=== PATIENT | female | born 1960 | race African-American/Black ===

== ENCOUNTER 2017-12-29 13:25 | Emergency (ER) | payer MEDICARE, MEDICAID ==
[~2017-12-29] VITALS: Ht 165.1 cm; Wt 68.2 kg
[2017-12-29] MEDS: IBUPROFEN 600 MG TABLET PO ONE (15:27)
[2017-12-29 16:27] VITALS: BP 148/95
== END 2017-12-29 16:41 | disposition home or self-care (01) ==
LOC: EMS 13:27
DX: S82.61XA Displaced fracture of lateral malleolus of right fibula, initial encounter for closed fracture (principal); F17.210 Nicotine dependence, cigarettes, uncomplicated; W22.8XXA Striking against or struck by other objects, initial encounter; Y93.01 Activity, walking, marching and hiking; Y92.89 Other specified places as the place of occurrence of the external cause; Y99.8 Other external cause status
CPT/HCPCS: 29515; 99284; 99406

== ENCOUNTER 2019-11-20 09:28 | Emergency (ER) | payer MEDICARE, MEDICAID ==
[~2019-11-20] VITALS: Ht 162.6 cm; Wt 68.2 kg
[2019-11-20] MEDS ORDERED: KETOROLAC TROMETHAMINE 60 MG/2 ML VIAL IM ONE (12:15)
[2019-11-20] MEDS ORDERED: PENICILLIN V POTASSIUM 500 MG TABLET PO ONE (12:15)
[2019-11-20 12:29] VITALS: BP 130/74
== END 2019-11-20 12:32 | disposition home or self-care (01) ==
LOC: EMS 09:30
DX: K08.89 Other specified disorders of teeth and supporting structures (principal); J45.909 Unspecified asthma, uncomplicated; F20.9 Schizophrenia, unspecified; F17.210 Nicotine dependence, cigarettes, uncomplicated
CPT/HCPCS: 96372; 99283; J1885

== ENCOUNTER → 2019-11-24 | Outpatient (CLI) | payer MEDICARE, MEDICAID | END | disposition home or self-care (01) | LOC: RADMN 10:23 | PROVIDERS: ATTEND Physician Assistant | DX: M47.26 Other spondylosis with radiculopathy, lumbar region (principal); M51.26 Other intervertebral disc displacement, lumbar region; M51.36 Other intervertebral disc degeneration, lumbar region; M48.061 Spinal stenosis, lumbar region without neurogenic claudication; M51.16 Intervertebral disc disorders with radiculopathy, lumbar region | CPT/HCPCS: 72148 ==

== ENCOUNTER 2020-01-07 14:16 | Emergency (ER) | payer MEDICARE, MEDICAID ==
[~2020-01-07] VITALS: Ht 162.6 cm; Wt 70.0 kg
[2020-01-07] MEDS ORDERED: IBUPROFEN 400 MG TABLET PO ONE (15:45)
[2020-01-07 17:55] VITALS: BP 143/79
== END 2020-01-07 18:46 | disposition home or self-care (01) ==
LOC: EMS 14:21
DX: M79.674 Pain in right toe(s) (principal); J45.909 Unspecified asthma, uncomplicated; F20.9 Schizophrenia, unspecified; F17.210 Nicotine dependence, cigarettes, uncomplicated
CPT/HCPCS: 99406

== ENCOUNTER 2020-03-27 16:49 | Emergency (ER) | payer MEDICARE, MEDICAID ==
[~2020-03-27] VITALS: Ht 162.6 cm; Wt 68.2 kg
[2020-03-27] MEDS ORDERED: KETOROLAC TROMETHAMINE 30 MG/ML VIAL IVP ONE (17:15)
[2020-03-27] MEDS ORDERED: LIDOCAINE 5% TRANSDERMAL PATCH TD ONE (17:15)
[2020-03-27 18:14] VITALS: BP 157/58
== END 2020-03-27 18:22 | disposition home or self-care (01) ==
LOC: EMS 16:49
DX: G89.29 Other chronic pain (principal); M54.5 Low back pain; J45.909 Unspecified asthma, uncomplicated; F20.9 Schizophrenia, unspecified; F17.210 Nicotine dependence, cigarettes, uncomplicated
CPT/HCPCS: 96374; 99283; J1885

== ENCOUNTER 2020-09-16 13:50 | Emergency (ER) | payer MEDICARE, MEDICAID ==
[~2020-09-16] VITALS: Ht 172.7 cm; Wt 63.6 kg
[2020-09-16 14:00] VITALS: BP 145/92
[2020-09-16] MEDS ORDERED: IBUPROFEN 600 MG TABLET PO ONE (19:00)
== END 2020-09-16 18:58 | disposition home or self-care (01) ==
LOC: EMS 13:53
DX: S46.911A Strain of unspecified muscle, fascia and tendon at shoulder and upper arm level, right arm, initial encounter (principal); J45.909 Unspecified asthma, uncomplicated; I10 Essential (primary) hypertension; F20.9 Schizophrenia, unspecified; F17.210 Nicotine dependence, cigarettes, uncomplicated; X58.XXXA Exposure to other specified factors, initial encounter; Y93.89 Activity, other specified; Y92.89 Other specified places as the place of occurrence of the external cause; Y99.8 Other external cause status
CPT/HCPCS: Z7502; Z7610

== ENCOUNTER 2020-10-17 00:33 | Emergency (ER) | payer MEDICARE, MEDICAID ==
[~2020-10-17] VITALS: Ht 165.1 cm; Wt 70.5 kg
[2020-10-17 00:35] VITALS: BP 149/100
== END 2020-10-17 02:51 | disposition left against medical advice (07) ==
LOC: EMS 00:35
DX: M25.511 Pain in right shoulder (principal); Z53.21 Procedure and treatment not carried out due to patient leaving prior to being seen by health care provider

== ENCOUNTER 2021-04-21 00:02 | Emergency (ER) | payer MEDICARE, MEDICAID ==
[~2021-04-21] VITALS: Ht 162.6 cm; Wt 63.6 kg
[2021-04-21] MEDS ORDERED: IBUPROFEN 800 MG TABLET PO ONE (02:45)
[2021-04-21 03:18] VITALS: BP 116/69
== END 2021-04-21 03:57 | disposition home or self-care (01) ==
LOC: EMS 00:09
DX: M76.811 Anterior tibial syndrome, right leg (principal); J45.909 Unspecified asthma, uncomplicated; I10 Essential (primary) hypertension; F20.9 Schizophrenia, unspecified; F17.210 Nicotine dependence, cigarettes, uncomplicated
CPT/HCPCS: 99282; Z7502; Z7610

== ENCOUNTER 2021-05-05 06:30 | Emergency (ER) | payer MEDICARE, MEDICAID ==
[~2021-05-05] VITALS: Ht 162.6 cm; Wt 54.5 kg
[2021-05-05 06:51] VITALS: BP 170/92
[2021-05-05] MEDS ORDERED: ACETAMINOPHEN 325 MG TABLET PO ONE (07:00)
[2021-05-05 07:15] LABS: BASOPHILS % (AUTO) 0.4 % (0.0-2.0); EOSINOPHILS % (AUTO) 0.8 % (1.0-6.0); HEMATOCRIT 34.5 % (36-46); HEMOGLOBIN 11.6 g/dL (12.0-16.0); LYMPHOCYTES # (AUTO) 1.3 K/uL (1.0-4.8); LYMPHOCYTES % (AUTO) 26.2 % (22.0-44.0); MEAN CORPUSCULAR HEMOGLOBIN 29.4 pg (26.0-34.0); MEAN CORPUSCULAR HGB CONC 33.6 G/dL (31.0-37.0); MEAN CORPUSCULAR VOLUME 88 fL (80-100); MONOCYTES # (AUTO) 0.3 K/uL (0.1-1.0); MONOCYTES % (AUTO) 5.8 % (2.0-9.0); NEUTROPHILS # (AUTO) 3.2 K/uL (1.8-7.7); NEUTROPHILS % (AUTO) 66.8 % (40.0-70.0); PLATELET COUNT (AUTO) 215 K/uL (150-450); RED BLOOD CELL COUNT(AUTO) 3.95 MIL/uL (4.00-5.20); RED CELL DISTRIBUTION WIDTH 14.8 % (11.5-14.5)
[2021-05-05 07:25] LABS: PROTHROMBIN TIME 10.6 SEC (9.4-11.6)
[2021-05-05 07:26] LABS: ANION GAP 7 mmol/L (8-16); CALCIUM, TOTAL 8.9 mg/dL (8.8-10.5); CARBON DIOXIDE 26 mmol/L (22-29); CHLORIDE 104 mmol/L (98-107); CREATININE 0.58 mg/dL (0.60-1.30); GLOMERULAR FILTR. RATE CALC > 60 mL/min (>60); GLUCOSE,RANDOM 77 mg/dL (70-110); SODIUM SERUM 137 mmol/L (136-145); UREA NITROGEN, BLOOD 13 mg/dL (7-18)
[2021-05-05 07:40] LABS: ALANINE AMINOTRANSFERASE 23 U/L (12-78); ALBUMIN 3.8 g/dL (3.4-5.0); ALKALINE PHOSPHATASE 87 U/L (46-116); BILIRUBIN,TOTAL 0.2 mg/dL (0.1-1.0); LIPASE 56 U/L (73-393); TOTAL PROTEIN, SERUM 7.5 g/dL (6.4-8.2)
[2021-05-05 07:50] LABS: ASPARTATE AMINOTRANSFERASE 21 U/L (15-37)
[2021-05-05] MEDS ORDERED: NAPROXEN 250 MG TABLET PO ONE (08:45)
== END 2021-05-05 09:02 | disposition home or self-care (01) ==
LOC: EMS 06:32
DX: S22.32XA Fracture of one rib, left side, initial encounter for closed fracture (principal); R10.12 Left upper quadrant pain; J45.909 Unspecified asthma, uncomplicated; I10 Essential (primary) hypertension; F20.9 Schizophrenia, unspecified; F17.210 Nicotine dependence, cigarettes, uncomplicated; X58.XXXA Exposure to other specified factors, initial encounter; Y93.89 Activity, other specified; Y92.89 Other specified places as the place of occurrence of the external cause; Y99.8 Other external cause status
CPT/HCPCS: 71101; 74176; 80053; 83690; 84484; 85025; 85610; 99284

== ENCOUNTER 2021-09-09 12:50 | Emergency (ER) | payer MEDICARE, MEDICAID ==
[~2021-09-09] VITALS: Ht 162.6 cm; Wt 65.9 kg
[2021-09-09 12:57] VITALS: BP 121/74
== END 2021-09-09 15:48 | disposition home or self-care (01) ==
LOC: EMS 12:56
DX: S46.912A Strain of unspecified muscle, fascia and tendon at shoulder and upper arm level, left arm, initial encounter (principal); M25.562 Pain in left knee; I10 Essential (primary) hypertension; J45.909 Unspecified asthma, uncomplicated; F20.9 Schizophrenia, unspecified; F17.210 Nicotine dependence, cigarettes, uncomplicated; X50.9XXA Other and unspecified overexertion or strenuous movements or postures, initial encounter; Y93.89 Activity, other specified; Y92.89 Other specified places as the place of occurrence of the external cause; Y99.8 Other external cause status
CPT/HCPCS: 99283

== ENCOUNTER 2021-10-06 22:39 | Emergency (ER) | payer MEDICARE, MEDICAID ==
[~2021-10-06] VITALS: Ht 162.6 cm; Wt 65.9 kg
[2021-10-06 23:13] LABS: BASOPHILS % (AUTO) 0.1 % (0.0-2.0); EOSINOPHILS % (AUTO) 0.3 % (1.0-6.0); HEMATOCRIT 35.4 % (36-46); LYMPHOCYTES # (AUTO) 0.8 K/uL (1.0-4.8); LYMPHOCYTES % (AUTO) 16.4 % (22.0-44.0); MEAN CORPUSCULAR HEMOGLOBIN 29.5 pg (26.0-34.0); MEAN CORPUSCULAR VOLUME 87 fL (80-100); MONOCYTES # (AUTO) 0.3 K/uL (0.1-1.0); NEUTROPHILS # (AUTO) 3.6 K/uL (1.8-7.7); NEUTROPHILS % (AUTO) 77.2 % (40.0-70.0); PLATELET COUNT (AUTO) 236 K/uL (150-450); RED BLOOD CELL COUNT(AUTO) 4.08 MIL/uL (4.00-5.20); RED CELL DISTRIBUTION WIDTH 13.3 % (11.5-14.5)
[2021-10-06 23:24] LABS: ANION GAP 11 mmol/L (8-16); CALCIUM, TOTAL 9.5 mg/dL (8.8-10.5); CARBON DIOXIDE 27 mmol/L (22-29); CHLORIDE 98 mmol/L (98-107); CREATININE 0.63 mg/dL (0.60-1.30); GLOMERULAR FILTR. RATE CALC > 60 mL/min (>60); GLUCOSE,RANDOM 88 mg/dL (70-110); POTASSIUM 3.7 mmol/L (3.5-5.1); SODIUM SERUM 136 mmol/L (136-145); UREA NITROGEN, BLOOD 17 mg/dL (7-18)
[2021-10-06 23:29] LABS: B-TYPE NATRIURETIC PEPTIDE 10 pg/mL (0-100)
[2021-10-06 23:37] LABS: ALANINE AMINOTRANSFERASE 22 U/L (12-78); ALBUMIN 4.2 g/dL (3.4-5.0); ALKALINE PHOSPHATASE 86 U/L (46-116); ASPARTATE AMINOTRANSFERASE 26 U/L (15-37); BILIRUBIN,TOTAL 0.3 mg/dL (0.1-1.0); CREATINE KINASE, TOTAL ONLY 174 U/L (26-192); TOTAL PROTEIN, SERUM 8.1 g/dL (6.4-8.2)
[2021-10-06 23:49] LABS: AMPHET/METH SCREEN,URINE NEGATIVE (NEGATIVE); BARBITURATE SCREEN, URINE NEGATIVE (NEGATIVE); BENZODIAZEPINES SCREEN,URINE NEGATIVE (NEGATIVE); CANNABINOID SCREEN,URINE NEGATIVE (NEGATIVE); COCAINE SCREEN,URINE NEGATIVE (NEGATIVE); METHADONE SCREEN, URINE NEGATIVE (NEGATIVE); OPIATE SCREEN,URINE POSITIVE (NEGATIVE)
[2021-10-06 23:51] LABS: APPEARANCE,URINE CLEAR (CLEAR); BILIRUBIN,URINE NEGATIVE (NEGATIVE); GLUCOSE, URINE (UA) NEGATIVE (NEGATIVE); KETONES,URINE TRACE mg/dL (NEGATIVE); LEUKOCYTE ESTERASE ,URINE NEGATIVE (NEGATIVE); NITRATE,URINE NEGATIVE (NEGATIVE); OCCULT BLOOD,URINE NEGATIVE (NEGATIVE); PH,URINE 5.5 (5.0-8.0); PROTEIN,URINE NEGATIVE (NEGATIVE); UROBILINOGEN,URINE 0.2 mg/dL (<=1.0)
[2021-10-06 23:53] LABS: PHENCYCLIDINE SCREEN,URINE POSITIVE (NEGATIVE)
[2021-10-07 02:39] VITALS: BP 116/72
== END 2021-10-07 03:36 | disposition home or self-care (01) ==
LOC: EMS 22:41
DX: F11.90 Opioid use, unspecified, uncomplicated (principal); F16.988 Hallucinogen use, unspecified with other hallucinogen-induced disorder; I10 Essential (primary) hypertension; F20.9 Schizophrenia, unspecified; J45.909 Unspecified asthma, uncomplicated; F17.210 Nicotine dependence, cigarettes, uncomplicated; Z79.899 Other long term (current) drug therapy
CPT/HCPCS: 36415; 71045; 80053; 80307; 81003; 82550; 83880; 84484; 85025; 93005; 99291; G0480

== ENCOUNTER 2021-11-28 16:27 | Emergency (ER) | payer MEDICARE, MEDICAID ==
[~2021-11-28] VITALS: Ht 162.6 cm; Wt 63.6 kg
[2021-11-28] MEDS ORDERED: HYDROCODONE/ACETAMINOPHEN 5-325 MG TABLET PO ONE (18:15)
[2021-11-28 18:24] VITALS: BP 140/70
[2021-11-28] MEDS ORDERED: HYDR-4723 PO (18:46)
[2021-11-28] MEDS ORDERED: IBUP-1554 PO (18:46)
== END 2021-11-28 19:12 | disposition home or self-care (01) ==
LOC: EMS 16:29
DX: S39.012A Strain of muscle, fascia and tendon of lower back, initial encounter (principal); S60.212A Contusion of left wrist, initial encounter; J45.909 Unspecified asthma, uncomplicated; I10 Essential (primary) hypertension; F20.9 Schizophrenia, unspecified; F17.210 Nicotine dependence, cigarettes, uncomplicated; F13.10 Sedative, hypnotic or anxiolytic abuse, uncomplicated; W19.XXXA Unspecified fall, initial encounter; Y93.89 Activity, other specified; Y92.89 Other specified places as the place of occurrence of the external cause; Y99.8 Other external cause status
CPT/HCPCS: 99283

== ENCOUNTER 2023-05-16 15:56 | Emergency (ER) | payer MEDICARE, MEDICAID ==
[~2023-05-16] VITALS: Ht 162.6 cm; Wt 68.2 kg
[~2023-05-16 15:56] MED LIST: HYDR-4723 PO; IBUP-1554 PO
[2023-05-16 16:09] VITALS: TEMP 98.6
[2023-05-16] MEDS ORDERED: KETOROLAC TROMETHAMINE 30 MG/ML VIAL IM ONE (16:45)
[2023-05-16 18:42] VITALS: BP 148/81; PULSE 82; RESP 16
== END 2023-05-16 18:48 | disposition home or self-care (01) ==
LOC: EMS 15:57
DX: M54.50 Low back pain, unspecified (principal); M25.572 Pain in left ankle and joints of left foot; M19.90 Unspecified osteoarthritis, unspecified site; J45.909 Unspecified asthma, uncomplicated; I10 Essential (primary) hypertension; F20.9 Schizophrenia, unspecified; F17.210 Nicotine dependence, cigarettes, uncomplicated; Z98.890 Other specified postprocedural states
CPT/HCPCS: 99283; 96372; J1885

== ENCOUNTER 2023-10-31 21:00 | Emergency (ER) | payer OTHER ==
[~2023-10-31] VITALS: Ht 167.6 cm; Wt 86.0 kg
[2023-10-31 21:03] VITALS: BP 132/114; PULSE 108; RESP 28; TEMP 98.1
[2023-10-31] MEDS ORDERED: MethylPREDNISolone SOD SUCC 125 MG/2 ML VIAL IVP ONE (21:30)
[2023-10-31] MEDS ORDERED: ALBUTEROL SULFATE 2.5 MG/0.5 ML 5 ML NEB SOLUTION NEB ONE (21:30)
[2023-10-31] MEDS ORDERED: IPRATROPIUM BROMIDE 0.5 MG/2.5 ML NEB SOLUTION NEB ONE (21:30)
== END 2023-10-31 22:23 | disposition left against medical advice (07) ==
LOC: EMS 21:01
DX: R06.02 Shortness of breath (principal); M19.90 Unspecified osteoarthritis, unspecified site; J45.909 Unspecified asthma, uncomplicated; I10 Essential (primary) hypertension; F20.9 Schizophrenia, unspecified; F15.90 Other stimulant use, unspecified, uncomplicated
CPT/HCPCS: 36415; 71045; 99285; 93005; G0480; Q9967

== ENCOUNTER 2023-12-07 08:02 | Emergency (ER) | payer OTHER ==
[~2023-12-07] VITALS: Ht 162.6 cm; Wt 79.5 kg
[2023-12-07 08:05] VITALS: TEMP 98.1
[2023-12-07] MEDS ORDERED: GABA-1181 PO (08:07)
[2023-12-07 09:40] VITALS: BP 139/81; PULSE 75; RESP 18
[2023-12-07 10:39] LABS: BASOPHILS % (AUTO) 0.3 % (0.0-2.0); EOSINOPHILS % (AUTO) 1.4 % (1.0-6.0); LYMPHOCYTES # (AUTO) 1.7 K/uL (1.0-4.8); MEAN CORPUSCULAR HEMOGLOBIN 27.4 pg (26.0-34.0); MEAN CORPUSCULAR HGB CONC 32.3 G/dL (31.0-37.0); MEAN CORPUSCULAR VOLUME 85 fL (80-100); MONOCYTES # (AUTO) 0.5 K/uL (0.1-1.0); MONOCYTES % (AUTO) 7.4 % (2.0-9.0); NEUTROPHILS # (AUTO) 4.3 K/uL (1.8-7.7); NEUTROPHILS % (AUTO) 64.9 % (40.0-70.0); PLATELET COUNT (AUTO) 225 K/uL (150-450); RED BLOOD CELL COUNT(AUTO) 4.01 MIL/uL (4.00-5.20); RED CELL DISTRIBUTION WIDTH 14.7 % (11.5-14.5); WHITE BLOOD COUNT (AUTO) 6.6 K/uL (4.5-11.0)
[2023-12-07 10:47] LABS: ANION GAP 10 mmol/L (8-16); CALCIUM, TOTAL 8.7 mg/dL (8.8-10.5); CARBON DIOXIDE 27 mmol/L (22-29); CHLORIDE 104 mmol/L (98-107); CREATININE 0.63 mg/dL (0.60-1.30); GLOMERULAR FILTR. RATE CALC > 60 mL/min (>60); GLUCOSE,RANDOM 129 mg/dL (70-110); POTASSIUM 3.6 mmol/L (3.5-5.1); SODIUM SERUM 141 mmol/L (136-145); UREA NITROGEN, BLOOD 16 mg/dL (7-18)
[2023-12-07] MEDS ORDERED: IBUP-1492 PO (12:28)
== END 2023-12-07 14:02 | disposition home or self-care (01) ==
LOC: EMS 08:02
DX: S42.401A Unspecified fracture of lower end of right humerus, initial encounter for closed fracture (principal); M77.9 Enthesopathy, unspecified; I10 Essential (primary) hypertension; J45.909 Unspecified asthma, uncomplicated; F20.9 Schizophrenia, unspecified; F17.210 Nicotine dependence, cigarettes, uncomplicated; X58.XXXA Exposure to other specified factors, initial encounter; Y93.89 Activity, other specified; Y92.89 Other specified places as the place of occurrence of the external cause; Y99.8 Other external cause status
CPT/HCPCS: 80048; 85025; 99284

== ENCOUNTER 2024-02-18 08:22 | Emergency (ER) | payer OTHER ==
[~2024-02-18] VITALS: Ht 162.6 cm; Wt 77.0 kg
[~2024-02-18 08:22] MED LIST changes: +GABA-1181 PO; -HYDR-4723 PO; +IBUP-1492 PO; -IBUP-1554 PO
[2024-02-18 08:32] VITALS: BP 153/61; PULSE 66; RESP 16; TEMP 97.6
== END 2024-02-18 09:32 | disposition still patient (30) ==
LOC: EMS 08:22
DX: R22.2 Localized swelling, mass and lump, trunk (principal); I10 Essential (primary) hypertension; J45.909 Unspecified asthma, uncomplicated; F20.9 Schizophrenia, unspecified; F17.210 Nicotine dependence, cigarettes, uncomplicated
CPT/HCPCS: 99281; Z7502

== ENCOUNTER → 2024-03-22 | Emergency (ER) | payer OTHER ==
[~2024-03-22] VITALS: Ht 170.2 cm; Wt 77.3 kg
[~2024-03-22] MED LIST changes: +ACET-66 PO; +FLUT12AE21 PO; +IBUP-1554 PO; +LIDOCAINE 1% 10 ML VIAL ID ONE; +LIDOCAINE 1% 10 ML VIAL PERC ONE
[2024-03-22 14:06] VITALS: BP 129/60; PULSE 67; RESP 18; TEMP 98.5
== END | disposition still patient (30) ==
LOC: EMS 08:02
DX: S00.451A Superficial foreign body of right ear, initial encounter (principal); J45.909 Unspecified asthma, uncomplicated; I10 Essential (primary) hypertension; F20.9 Schizophrenia, unspecified; F17.210 Nicotine dependence, cigarettes, uncomplicated; W49.04XA Ring or other jewelry causing external constriction, initial encounter; Y93.89 Activity, other specified; Y92.89 Other specified places as the place of occurrence of the external cause; Y99.8 Other external cause status
CPT/HCPCS: 99281; J3490

== ENCOUNTER 2024-03-23 07:58 | Emergency (ER) | payer OTHER ==
[~2024-03-23] VITALS: Ht 170.2 cm; Wt 84.0 kg
[~2024-03-23 07:58] MED LIST changes: -ACET-66 PO; -GABA-1181 PO; -IBUP-1492 PO; -IBUP-1554 PO; -LIDOCAINE 1% 10 ML VIAL ID ONE; -LIDOCAINE 1% 10 ML VIAL PERC ONE
[2024-03-23 08:03] VITALS: TEMP 98.3
[2024-03-23 08:10] VITALS: BP 148/66; PULSE 74; RESP 18
[2024-03-23] MEDS: LIDOCAINE 1% 10 ML VIAL SQ ONE (08:16)
== END 2024-03-23 08:49 | disposition home or self-care (01) ==
LOC: EMS 07:58
DX: T16.1XXA Foreign body in right ear, initial encounter (principal); I10 Essential (primary) hypertension; J45.909 Unspecified asthma, uncomplicated; F20.9 Schizophrenia, unspecified; F17.210 Nicotine dependence, cigarettes, uncomplicated; F11.20 Opioid dependence, uncomplicated; W44.8XXA Other foreign body entering into or through a natural orifice, initial encounter; Y93.89 Activity, other specified; Y92.89 Other specified places as the place of occurrence of the external cause; Y99.8 Other external cause status
CPT/HCPCS: 99285; 10120; J3490

== ENCOUNTER 2024-04-13 08:38 | Emergency (ER) | payer OTHER ==
[~2024-04-13] VITALS: Ht 170.2 cm; Wt 84.0 kg
[2024-04-13 08:42] VITALS: BP 140/70; PULSE 78; RESP 16; TEMP 98.3
[2024-04-13] MEDS: BACITRACIN 0.9 GM PACKET OINTMENT TP ONE (09:01)
[2024-04-13] MEDS: LIDOCAINE 1% 10 ML VIAL SQ ONE (09:01)
== END 2024-04-13 09:07 | disposition home or self-care (01) ==
LOC: EMS 08:38
DX: T16.2XXA Foreign body in left ear, initial encounter (principal); M19.90 Unspecified osteoarthritis, unspecified site; J45.909 Unspecified asthma, uncomplicated; I10 Essential (primary) hypertension; F20.9 Schizophrenia, unspecified; F17.210 Nicotine dependence, cigarettes, uncomplicated; Z98.890 Other specified postprocedural states; W45.8XXA Other foreign body or object entering through skin, initial encounter; Y93.89 Activity, other specified; Y92.89 Other specified places as the place of occurrence of the external cause; Y99.8 Other external cause status
CPT/HCPCS: 99285; 10120; J3490

== ENCOUNTER 2024-06-01 09:55 | Emergency (ER) | payer OTHER ==
[~2024-06-01] VITALS: Ht 162.6 cm; Wt 8.0 kg
[~2024-06-01 09:55] MED LIST changes: +FLUT12AE21 IH; -FLUT12AE21 PO
[2024-06-01 10:13] VITALS: TEMP 98.1
[2024-06-01] MEDS ORDERED: FLUO15OI TP (11:17)
[2024-06-01] MEDS: METHOCARBAMOL 500 MG TABLET PO ONE (11:24)
[2024-06-01] MEDS: KETOROLAC TROMETHAMINE 60 MG/2 ML VIAL IM ONE (11:24)
[2024-06-01] MEDS ORDERED: IBUP-1554 PO (12:04)
[2024-06-01] MEDS ORDERED: METH-812 PO (12:04)
[2024-06-01 12:19] VITALS: BP 134/67; PULSE 75; RESP 14
== END 2024-06-01 12:20 | disposition home or self-care (01) ==
LOC: EMS 09:55
DX: S83.91XA Sprain of unspecified site of right knee, initial encounter (principal); G89.29 Other chronic pain; M54.50 Low back pain, unspecified; F17.210 Nicotine dependence, cigarettes, uncomplicated; J45.909 Unspecified asthma, uncomplicated; I10 Essential (primary) hypertension; W22.8XXA Striking against or struck by other objects, initial encounter; Y93.89 Activity, other specified; Y92.89 Other specified places as the place of occurrence of the external cause; Y99.0 Civilian activity done for income or pay
CPT/HCPCS: 99283; 73562; 96372; J1885

== ENCOUNTER 2024-08-21 08:31 | Emergency (ER) | payer MEDICARE, MEDICAID ==
[~2024-08-21] VITALS: Ht 162.6 cm; Wt 72.7 kg
[~2024-08-21 08:31] MED LIST changes: +DIVA-153 PO; +FLUO-418 PO; -FLUT12AE21 IH; +MELA5TAB40 PO; +NALT50TA33 PO; +OLAN5TAB94 PO; +OMEG100033 PO
[2024-08-21 08:36] VITALS: TEMP 98.2
[2024-08-21] MEDS ORDERED: FLUT12AE21 PO (08:40)
[2024-08-21] MEDS ORDERED: OLAN15TA21 PO (08:40)
[2024-08-21] MEDS ORDERED: ALBU18HF12 IH (08:40)
[2024-08-21 10:34] VITALS: BP 147/60; PULSE 86; RESP 16; O2SAT 99
[2024-08-21] MEDS: ACETAMINOPHEN 325 MG TABLET PO ONE (11:00)
[2024-08-21] MEDS: IBUPROFEN 400 MG TABLET PO ONE (11:00)
== END 2024-08-21 11:09 | disposition home or self-care (01) ==
LOC: EMS 08:33
DX: S93.401A Sprain of unspecified ligament of right ankle, initial encounter (principal); M19.90 Unspecified osteoarthritis, unspecified site; J45.909 Unspecified asthma, uncomplicated; I10 Essential (primary) hypertension; F20.9 Schizophrenia, unspecified; F17.210 Nicotine dependence, cigarettes, uncomplicated; Z98.890 Other specified postprocedural states; X50.1XXA Overexertion from prolonged static or awkward postures, initial encounter; Y93.01 Activity, walking, marching and hiking; Y92.89 Other specified places as the place of occurrence of the external cause; Y99.8 Other external cause status
CPT/HCPCS: 99284; 73562-TC; 73610-TC; Z7502; Z7610

== ENCOUNTER 2024-10-07 07:18 | Emergency (ER) | payer OTHER ==
[~2024-10-07] VITALS: Ht 162.6 cm; Wt 72.7 kg
[~2024-10-07 07:18] MED LIST changes: +ALBU18HF12 IH; -MELA5TAB40 PO; -NALT50TA33 PO; +OLAN15TA21 PO; -OLAN5TAB94 PO; -OMEG100033 PO
[2024-10-07 07:21] VITALS: TEMP 98.3
[2024-10-07] MEDS: CEPHALEXIN MONOHYDRATE 500 MG CAPSULE PO ONE (07:59)
[2024-10-07] MEDS: LIDOCAINE 1% 10 ML VIAL SQ ONE (07:59)
[2024-10-07] MEDS: IBUPROFEN 600 MG TABLET PO ONE (07:59)
[2024-10-07] MEDS: ACETAMINOPHEN 500 MG TABLET PO ONE (07:59)
[2024-10-07] MEDS ORDERED: DOXY-354 PO (09:00)
[2024-10-07] MEDS ORDERED: ACET-2080 PO (09:00)
[2024-10-07] MEDS ORDERED: IBUP-1554 PO (09:00)
[2024-10-07] MEDS ORDERED: CEPH-558 PO (09:00)
[2024-10-07 09:05] VITALS: BP 139/91; PULSE 86; RESP 16; O2SAT 99
[2024-10-07] MEDS: BACITRACIN 0.9 GM PACKET OINTMENT TP ONE ×2 (09:05)
== END 2024-10-07 09:17 | disposition home or self-care (01) ==
LOC: EMS 07:19
DX: L03.012 Cellulitis of left finger (principal); F20.9 Schizophrenia, unspecified; I10 Essential (primary) hypertension; J45.909 Unspecified asthma, uncomplicated; M19.90 Unspecified osteoarthritis, unspecified site; F17.210 Nicotine dependence, cigarettes, uncomplicated; Z98.890 Other specified postprocedural states
CPT/HCPCS: 99284; 10060; J3490

== ENCOUNTER 2025-03-29 16:29 | Emergency (ER) | payer OTHER ==
[~2025-03-29] VITALS: Ht 162.6 cm; Wt 72.7 kg
[~2025-03-29 16:29] MED LIST changes: +ACET-2080 PO; +CEPH-558 PO; -DIVA-153 PO; +DOXY-354 PO; -FLUO-418 PO; +IBUP-1554 PO; -OLAN15TA21 PO
[2025-03-29 19:56] VITALS: BP 145/75; PULSE 79; RESP 16; TEMP 98.1; O2SAT 98
[2025-03-29] MEDS ORDERED: HYDR-4062 PO (20:17)
[2025-03-29] MEDS ORDERED: IBUP-1554 PO (20:17)
[2025-03-29] MEDS ORDERED: CHOL100062 PO (20:20)
[2025-03-29] MEDS ORDERED: CALC1TAB93 PO (20:20)
[2025-03-29] MEDS ORDERED: CLOB15OI21 TP (20:20)
[2025-03-29] MEDS ORDERED: AMLO5TAB66 PO (20:20)
[2025-03-29] MEDS: ACETAMINOPHEN 500 MG TABLET PO ONE (20:32)
[2025-03-29] MEDS: IBUPROFEN 600 MG TABLET PO ONE (20:32)
== END 2025-03-29 20:58 | disposition home or self-care (01) ==
LOC: EMS 16:32
DX: M66.0 Rupture of popliteal cyst (principal); M25.561 Pain in right knee; F20.9 Schizophrenia, unspecified; I10 Essential (primary) hypertension; J45.909 Unspecified asthma, uncomplicated; M19.90 Unspecified osteoarthritis, unspecified site; F15.90 Other stimulant use, unspecified, uncomplicated; F17.210 Nicotine dependence, cigarettes, uncomplicated; Z98.890 Other specified postprocedural states; Z79.899 Other long term (current) drug therapy
CPT/HCPCS: 93971; 99284; Z7502; Z7610

== ENCOUNTER 2025-04-26 10:55 | Emergency (ER) | payer OTHER ==
[~2025-04-26] VITALS: Ht 162.6 cm; Wt 72.7 kg
[~2025-04-26 10:55] MED LIST changes: -ACET-2080 PO; +AMLO5TAB66 PO; +CALC1TAB93 PO; -CEPH-558 PO; +CHOL100062 PO; +CLOB15OI21 TP; -DOXY-354 PO; +HYDR-4062 PO
[2025-04-26 11:01] VITALS: TEMP 97.9
[2025-04-26] MEDS ORDERED: DUPI300P SQ (12:00)
[2025-04-26] MEDS: IBUPROFEN 600 MG TABLET PO ONE (12:04)
[2025-04-26] MEDS ORDERED: IBUP-1492 PO (14:15)
[2025-04-26 15:02] VITALS: BP 151/86; PULSE 76; RESP 18; O2SAT 98
== END 2025-04-26 15:11 | disposition home or self-care (01) ==
LOC: EMS 10:59
DX: S83.91XA Sprain of unspecified site of right knee, initial encounter (principal); F20.9 Schizophrenia, unspecified; J45.909 Unspecified asthma, uncomplicated; I10 Essential (primary) hypertension; M19.90 Unspecified osteoarthritis, unspecified site; F17.210 Nicotine dependence, cigarettes, uncomplicated; F15.90 Other stimulant use, unspecified, uncomplicated; Z98.890 Other specified postprocedural states; W20.8XXA Other cause of strike by thrown, projected or falling object, initial encounter; Y93.89 Activity, other specified; Y92.89 Other specified places as the place of occurrence of the external cause; Y99.8 Other external cause status
CPT/HCPCS: 29505; 99283